=== PATIENT | female | born 1950 | race Hispanic/Latino ===

== ENCOUNTER 2017-07-27 09:13 | Inpatient (IN) | payer MEDICARE ==
[2017-07-27 09:18] VITALS: BMI 25.5
[2017-07-27] MEDS ORDERED: Morphine 2 mg/ml ISec IM STA (09:28)
--- NOTE | 2017-07-27 09:32 | ED PDOC ---
Arrival/HPI - General Time Seen by Provider: 07/27/17 09:18 Historian: Patient - History of Present Illness Narrative History of Present Illness (Text): 07/27/17 09:32 67 y/o female, nkda, c/o rt. ankle pain x 2 days s/p inversion injury yesterday while slipping on the wet surface as she was taking out the garbage can. Pt. stated that she has no head/neck/back injury, no headache/neck or back pain, able to recall the whole event, no dizziness, stated that this is purely accidental mechanical fall due to the the slipper on the step while taking the garbage out, stated that she also twisted the lt. foot as well, no hematuria, no abdominal pain, no nausea/vomiting, no numbness or tingling, no other medical or psychological complaints. Past Medical History - Provider Review Nursing Documentation Reviewed: Yes - Musculoskeletal/Rheumatological Hx Falls: No - Psychiatric Hx Substance Use: No - Suicidal Assessment Feels Threatened In Home Enviroment: No Family/Social History - Physician Review Nursing Documentation Reviewed: Yes Family/Social History: Unknown Family HX Hx Alcohol Use: No Hx Substance Use: No Hx Substance Use Treatment: No Allergies/Home Meds Allergies/Adverse Reactions: Allergies No Known Allergies Allergy (Verified 07/27/17 09:27) Home Medications: Home Meds Medication Instructions Recorded Confirmed No Known Home Med 12/02/11 07/27/17 Review of Systems - Review of Systems Constitutional: absent: Fatigue, Fevers Eyes: absent: Vision Changes ENT: absent: Hearing Changes Respiratory: absent: SOB, Cough Cardiovascular: absent: Chest Pain Gastrointestinal: absent: Abdominal Pain, Diarrhea, Nausea, Vomiting Musculoskeletal: Arthralgias, Joint Swelling. absent: Back Pain, Neck Pain, Myalgias Skin: absent: Rash, Pruritis, Skin Lesions Neurological: absent: Headache, Dizziness Psychiatric: absent: Anxiety, Depression, Suicidal Ideation Physical Exam Vital Signs Reviewed: Yes Vital Signs Temp Pulse Resp BP Pulse Ox 07/27/17 11:22 89 18 158/86 H 99 07/27/17 09:25 98.2 F 98 H 18 165/98 H 99 Temperature: Afebrile Blood Pressure: Hypertensive Pulse: Regular Respiratory Rate: Normal Appearance: Positive for: Well-Appearing, Non-Toxic Pain Distress: Moderate Mental Status: Positive for: Alert and Oriented X 3 - Systems Exam Head: Present: Atraumatic, Normocephalic. No: Tenderness, Contusion, Swelling, Ecchymosis, Abrasion, Laceration, Other Pupils: Present: PERRL Extroacular Muscles: Present: EOMI Conjunctiva: Present: Normal Mouth: Present: Moist Mucous Membranes Nose (External): Present: Atraumatic. No: Abrasion, Contusion, Laceration, Lesions, Other Nose (Internal): Present: Normal Inspection, No Active Bleeding, Moist. No: Rhinorrhea, Septal Deviation, Septal Hematoma, Epistaxis Neck: Present: Normal Range of Motion, Trachea Midline. No: MIDLINE TENDERNESS , Paraspinal Tenderness, Lymphadenopathy Respiratory/Chest: Present: Clear to Auscultation, Good Air Exchange, Other (no ecchymosis/bruising). No: Respiratory Distress, Accessory Muscle Use, Wheezes, Decreased Breath Sounds, Rales, Retracting, Rhonchi, Tachypneic, Tender to Palpation Cardiovascular: Present: Regular Rate and Rhythm, Normal S1, S2, Other (no pedal edema). No: Murmurs Abdomen: Present: Normal Bowel Sounds, Other (no visible ecchymosis and no signs of trauma). No: Tenderness, Distention, Peritoneal Signs, Rebound, Guarding Back: Present: Normal Inspection, Other (no ecchymosis or signs of trauma). No : CVA Tenderness, Midline Tenderness, Paraspinal Tenderness, Pain with Leg Raise Upper Extremity: Present: Normal Inspection, Normal ROM, Neurovascularly Intact , Capillary Refill < 2s. No: Cyanosis, Edema, Tenderness, Swelling, Deformity Lower Extremity: Present: Normal Inspection, NORMAL PULSES, Normal ROM, Neurovascularly Intact, Capillary Refill < 2 s, Other (Rt. ankle/foot: +ttp on the medial mallelous, swelling to the medial and lateral malleolus, skin intact , no foot tenderness, limited ROM ankle due to the pain but able to have passive /active movement, no foot tenderness, +DPPT pulses, capillary refill< 2 seconds , neurovascular intact. Lt. foot +ttp on the lateral 5th metatarsal region with skin intact, no deformity, FROM without limitation, sensation intact, motor 5/5 , +DPPT pulses, no ankle tenderness. Bilateral lower extremities with negative manoj and mendez signs. ). No: Edema, Deformity Neurological: Present: GCS=15, CN II-XII Intact, Speech Normal Skin: Present: Warm, Dry, Normal Color. No: Rashes Psychiatric: Present: Alert, Oriented x 3, Normal Insight, Normal Concentration Medical Decision Making ED Course and Treatment: 07/27/17 09:38 -Code ortho activated earlier by me -morphine and rt. ankle/lt. ankle xray ordered -observe and reassess 07/27/17 10:18 -xray reviewed by me with bimalleolus(possible trimalleolus) fractures with tibial dislocation, will need reduction and splinting, will need admission for surgical procedure. -Labs/pt/ptt -cxr/ekg -IVF and dilaudid ordered for reduction procedure. -Pt. will need admission for this surgical case. 07/27/17 11:50 -Rt. ankle reduced by me with axial traction, post reduction film ordered. 07/27/17 12:18 -EKG: NSR @ 88 BPM, no ST elevation or depression, no T wave inversion. -Rt. ankle xray show rt. ankle fractures with tibial dislocation, reduced by me with improved anatomatical position but still needs admission for surgical procedure. -Rt. ankle reduction film with dislocation resolved and improved anatomically post reduction. -Lt. foot xray show 5th metatarsal fracture. -Chest xray show no active disease -Labs are non-significant -Dr. Garland pageshaji out, spoke to him, discussed about the case and dr. whitehead, agreed on the admission to his service and routine consult for Dr. Whitehead. -Dr. Gosia tyler (pt. and family request), discussed about the case and xray, agreed to consult the case, satisfied with the reduction, will come to see the patient this afternoon -Discussed with DR. Love, agreed on the labs/treatment and admission, he will put in the admission order. 07/27/17 12:32 -Lt. foot placed on the posterior splint by me with neurovascular intact. 07/27/17 14:57 -Pt. still feeling nauseous, reglan/pepcid. - Lab Interpretations Lab Results: 07/27/17 11:00 07/27/17 11:00 Lab Results 07/27/17 11:00: WBC 7.3, RBC 4.92, Hgb 15.8, Hct 46.3, MCV 94.1, MCH 32.1, MCHC 34.1, RDW 12.9, Plt Count 146, MPV 10.9, Gran % 70.3 H, Lymph % (Auto) 21.4 L, [place] % (Auto) 7.5 H, Eos % (Auto) 0.7 L, Baso % (Auto) 0.1, Gran # 5.16, Lymph # 1.6, [place] # 0.6, Eos # 0.1, Baso # 0.01 07/27/17 11:00: Sodium 139, Potassium 5.0, Chloride 104, Carbon Dioxide 23, Anion Gap 17, BUN 15, Creatinine 0.7, Est GFR ( Amer) > 60, Est GFR (Non- Af Amer) > 60, Random Glucose 108, Calcium 9.7, Magnesium 2.1, Total Bilirubin 0.6, AST 36, ALT 50, Alkaline Phosphatase 92, Total Protein 8.1, Albumin 4.4, Globulin 3.7, Albumin/Globulin Ratio 1.2 07/27/17 11:00: PT 11.4, INR 0.99, APTT 27.4 - RAD Interpretation Radiology Orders: 07/27/17 09:28 ANKLE RIGHT 3 VIEWS ROUTINE [RAD] Stat 07/27/17 10:14 CHEST PORTABLE [RAD] Stat FOOT LEFT 3 VIEWS ROUTINE [RAD] Stat 07/27/17 11:54 ANKLE RIGHT 3 VIEWS ROUTINE [RAD] Stat Rt. ankle: PROCEDURE: Right Ankle Radiographs. HISTORY: rt. ankle inversion injury x 2 days COMPARISON: None FINDINGS: BONES: Displaced fractures are seen of the lateral and medial malleolus. There is also dislocation of the ankle joint with the tibia displaced anterior to the talar dome JOINTS: As above SOFT TISSUES: Normal. OTHER FINDINGS: None. IMPRESSION: Displaced fractures are seen of the lateral and medial malleolus. There is also dislocation of the ankle joint with the tibia displaced anterior to the talar dome Lt. foot xray: PROCEDURE: Left Foot Radiographs. HISTORY: lt. lateral foot 5th metatarsal tenderness COMPARISON: None. FINDINGS: BONES: There is a transverse fracture through the base of the 5th metatarsal JOINTS: Normal. SOFT TISSUES: Normal. OTHER FINDINGS: None. IMPRESSION: Transverse fracture through the base of the 5th metatarsal Rt. ankle xray: PROCEDURE: Right Ankle Radiographs. HISTORY: rt. ankle post reduction COMPARISON: 07/27/2017 FINDINGS: BONES: There is improvement in the alignment of the bimalleolar fracture. The ankle joint is restored JOINTS: As above SOFT TISSUES: Normal. OTHER FINDINGS: None. IMPRESSION: Improvement in alignment of bimalleolar fracture. Successful reduction of ankle joint Chest xray: HISTORY: medical clearance COMPARISON: No prior. FINDINGS: LUNGS: No active pulmonary disease. PLEURA: No significant pleural effusion identified, no pneumothorax apparent. CARDIOVASCULAR: Normal. OSSEOUS STRUCTURES: No significant abnormalities. VISUALIZED UPPER ABDOMEN: Normal. OTHER FINDINGS: None. IMPRESSION: No active disease. Doll Eye Setter: Radiologist - EKG Interpretation EKG Interpretation (Text): 07/27/17 11:53 -EKG: NSR @ 88 BPM, no ST elevation or depression, no T wave inversion. Interpreted by ED Physician: Yes Type: 12 lead EKG - Medication Orders Current Medication Orders: Sodium Chloride (Sodium Chloride 0.9%) 1,000 mls @ 100 mls/hr IV .Q10H [facility] ELENA Last Admin: 07/27/17 11:47 Dose: 100 mls/hr eMAR Start Stop Document 07/27/17 11:47 GETACHEW (Rec: 07/27/17 11:47 GETACHEW [id number]) Intravenous Solution Start Date 07/27/17 Start Time 11:47 Discontinued Medications Famotidine (Pepcid) 20 mg IVP STAT STA Stop: 07/27/17 14:57 Last Admin: 07/27/17 15:28 Dose: 20 mg IVP Administration Document 07/27/17 15:28 RG (Rec: 07/27/17 15:28 RG [id number]) Charges for Administration # of IVP Administrations 1 Hydromorphone HCl (Dilaudid) 1 mg IVP STAT STA Stop: 07/27/17 10:15 Last Admin: 07/27/17 11:16 Dose: 1 mg MAR Pain Assessment Document 07/27/17 11:16 RG (Rec: 07/27/17 11:16 RG [id number]) Pain Reassessment Is this a pain reassessment? Yes Sleep Is patient sleeping during reassessment? No Presence of Pain Presence of Pain Yes Pain Scale Used Pain Scale Used Numeric Location Left, Right or Bilateral Right Upper or Lower Lower Pain Location Body Site Foot Description Description Intermittent IVP Administration Document 07/27/17 11:16 RG (Rec: 07/27/17 11:16 RG [id number]) Charges for Administration # of IVP Administrations 1 Metoclopramide HCl (Reglan) 10 mg IVP STAT STA Stop: 07/27/17 14:57 Last Admin: 07/27/17 15:28 Dose: 10 mg IVP Administration Document 07/27/17 15:28 RG (Rec: 07/27/17 15:28 RG [id number]) Charges for Administration # of IVP Administrations 1 Morphine Sulfate (Morphine) 2 mg IM STAT STA Stop: 07/27/17 09:29 Last Admin: 07/27/17 09:38 Dose: 2 mg MAR Pain Assessment Document 07/27/17 09:38 RG (Rec: 07/27/17 09:42 RG [id number]) Pain Reassessment Is this a pain reassessment? Yes Sleep Is patient sleeping during reassessment? No Presence of Pain Presence of Pain Yes Pain Scale Used Pain Scale Used Numeric Location Left, Right or Bilateral Right Upper or Lower Lower Pain Location Body Site Foot Description Description Intermittent Intensity of Pain at present 4 Aggravating Factors Changing Position Exercise/Activity Standing Walking Stair Climbing Alleviating Factors/Management Inactivity Techniques Alleviating Factors Inactivity IM Administration Charges Document 07/27/17 09:38 RG (Rec: 07/27/17 09:42 RG [id number]) Injection Site MAR Injection Site Left Deltoid Charges for Administration # of IM Administrations 1 Ondansetron HCl (Zofran Inj) 4 mg IVP STAT STA Stop: 07/27/17 10:17 Last Admin: 07/27/17 11:15 Dose: 4 mg IVP Administration Document 07/27/17 11:15 RG (Rec: 07/27/17 11:15 RG [id number]) Charges for Administration # of IVP Administrations 1 Ondansetron HCl (Zofran Inj) 4 mg IVP STAT STA Stop: 07/27/17 13:26 Last Admin: 07/27/17 13:20 Dose: 4 mg IVP Administration Document 07/27/17 13:20 GETACHEW (Rec: 07/27/17 14:07 GETACHEW [id number]) Charges for Administration # of IVP Administrations 1 Procedures - Joint Reduction Conscious Sedation: No Reduction Attempts: 1 (performed 07/27/2017 11:45am, total procedure time 15 minutes. ) Pre-Procedure NV Exam: Yes Post Joint Reduction Film: joint reduced Progress: post reduction film show there is anatomical improvement, posterior and sugartongue splint applied to the rt. lower extremity, neurovascular intact, RLE sensation intact, motor 5/5, capillary refill< 2 seconds, neurovascular intact, pt. feels much better. - PA / DEPLOYMENT SPECIALIST / Resident Statement MD/DO has reviewed & agrees with the documentation as recorded. Disposition/Present on Arrival - Present on Arrival Any Indicators Present on Arrival: No History of DVT/PE: No History of Uncontrolled Diabetes: No Urinary Catheter: No History of Decub. Ulcer: No - Disposition Have Diagnosis and Disposition been Completed?: Yes Diagnosis: Ankle fracture, Ankle dislocation, Foot fracture Disposition: HOSPITALIZED Disposition Time: 10:19 Patient Plan: Admission Patient Problems: Current Active Problems Problem Status Onset Ankle fracture Acute Ankle dislocation Acute Foot fracture Acute Condition: STABLE
[2017-07-27] MEDS ORDERED: HYDROmorphone 1 mg/ml ISec IVP STA (10:14)
[2017-07-27] MEDS ORDERED: HYDROmorphone 0.5 mg/0.5 ml ISec IVP STA (10:19)
--- NOTE | 2017-07-27 10:25 | RAD ---
PROCEDURE: Right Ankle Radiographs. HISTORY: rt. ankle inversion injury x 2 days COMPARISON: None FINDINGS: BONES: Displaced fractures are seen of the lateral and medial malleolus. There is also dislocation of the ankle joint with the tibia displaced anterior to the talar dome JOINTS: As above SOFT TISSUES: Normal. OTHER FINDINGS: None. IMPRESSION: Displaced fractures are seen of the lateral and medial malleolus. There is also dislocation of the ankle joint with the tibia displaced anterior to the talar dome
[2017-07-27 11:11] LABS: BASO # 0.01 K/mm3 (0.0-2.0); BASO % 0.1 % (0.0-3.0); EOS # 0.1 (0.0-0.7); EOS % 0.7 % (1.5-5.0); GRAN # 5.16 (1.4-6.5); GRAN % 70.3 % (50.0-68.0); HEMOGLOBIN 15.8 g/dL (12.0-16.0); LYMPH # 1.6 (1.2-3.4); LYMPH % 21.4 % (22.0-35.0); MEAN CELL VOLUME 94.1 fl (80.0-105.0); MEAN CORPUSCULAR HEMOGLOBIN 32.1 pg (25.0-35.0); MEAN CORPUSCULAR HGB CONC 34.1 g/dl (31.0-37.0); MEAN PLATELET VOLUME 10.9 fl (7.0-11.0); MONO # 0.6 (0.1-0.6); MONO % 7.5 % (1.0-6.0); RBC 4.92 10^6/uL (3.5-6.1); RED CELL DISTRIBUTION WIDTH 12.9 % (11.5-14.5); WHITE BLOOD COUNT 7.3 10^3/ul (4.5-11.0)
[2017-07-27 11:23] LABS: ALB/GLOB RATIO 1.2 (1.1-1.8); ALBUMIN 4.4 g/dL (3.0-4.8); ALT/SGPT 50 U/L (7-56); AST/SGOT 36 U/L (14-36); BLOOD UREA NITROGEN 15 mg/dL (7-21); CALCIUM 9.7 mg/dL (8.4-10.5); GFR AFRICAN-AMERICAN > 60; GFR NON-AFRICAN AMERICAN > 60; MAGNESIUM 2.1 mg/dL (1.7-2.2)
[2017-07-27 11:24] LABS: INR 0.99 (0.93-1.08); PARTIAL THROMBOPLASTIN TIME 27.4 Seconds (25.1-36.5); PROTHROMBIN TIME 11.4 SECONDS (9.4-12.5)
[2017-07-27] MEDS: Sodium Chloride 0.9% 1,000 ML IV SCH ×2 (11:47→22:17)
--- NOTE | 2017-07-27 12:13 | RAD ---
HISTORY: medical clearance COMPARISON: No prior. FINDINGS: LUNGS: No active pulmonary disease. PLEURA: No significant pleural effusion identified, no pneumothorax apparent. CARDIOVASCULAR: Normal. OSSEOUS STRUCTURES: No significant abnormalities. VISUALIZED UPPER ABDOMEN: Normal. OTHER FINDINGS: None. IMPRESSION: No active disease.
--- NOTE | 2017-07-27 12:19 | RAD ---
PROCEDURE: Right Ankle Radiographs. HISTORY: rt. ankle post reduction COMPARISON: 07/27/2017 FINDINGS: BONES: There is improvement in the alignment of the bimalleolar fracture. The ankle joint is restored JOINTS: As above SOFT TISSUES: Normal. OTHER FINDINGS: None. IMPRESSION: Improvement in alignment of bimalleolar fracture. Successful reduction of ankle joint
--- NOTE | 2017-07-27 13:34 | RAD ---
PROCEDURE: Left Foot Radiographs. HISTORY: lt. lateral foot 5th metatarsal tenderness COMPARISON: None. FINDINGS: BONES: There is a transverse fracture through the base of the 5th metatarsal JOINTS: Normal. SOFT TISSUES: Normal. OTHER FINDINGS: None. IMPRESSION: Transverse fracture through the base of the 5th metatarsal
[2017-07-27 15:57] LABS: PH,URINE 6.5 (4.7-8.0); URINE BILIRUBIN NEGATIVE (NEGATIVE); URINE BLOOD NEGATIVE (NEGATIVE); URINE GLUCOSE (UA) NEGATIVE (NEGATIVE); URINE LEUKOCYTE ESTERASE TRACE Leu/uL (NEGATIVE); URINE NITRATE POSITIVE (NEGATIVE); URINE PROTEIN TRACE mg/dL (<30 mg/dL)
[2017-07-27 15:58] LABS: URINE APPEARANCE TURBID (CLEAR); URINE COLOR YELLOW (YELLOW)
[2017-07-27] MEDS ORDERED: cefTRIAXone 1 gm 1 GM/100 ML BAG IVPB STA (16:10)
[2017-07-27 16:12] LABS: URINE BACTERIA MANY (NEG); URINE EPITHELIAL CELLS 0 - 2 /hpf (0-5); URINE RBC NEGATIVE /hpf (0-2)
[2017-07-27] MEDS ORDERED: Pneumococcal 23-Valent Vaccine IM ONE (17:11)
[2017-07-27] MEDS ORDERED: Influenza Vaccine 60 mcg/0.5 mL SYR (4YR UP) IM ONE (17:11)
[2017-07-27] MEDS: Enoxaparin 30 mg Syringe SC SCH (17:52)
--- NOTE | 2017-07-27 20:02 | CARD ---
APPROVED REPORT EKG Measurement Heart [id number] <Conclusion> Normal sinus rhythm with sinus arrhythmia Nonspecific T wave abnormality Abnormal ECG
--- NOTE | 2017-07-27 22:34 | CP.PCM.PN ---
Subjective - Date & Time of Evaluation Date of Evaluation: 07/27/17 Time of Evaluation: 22:33 - Subjective Subjective: Patient complained of pain in right ankle. Seen at bedside. Has no other complaints. Medical record was reviewed. This 67 year old white woman was admitted with Rt ankle pain of 2 days duration , right ankle fracture/dislocation, left 5th metatarsal base fx. Has no significant past medical history. Objective - Vital Signs/Intake and Output Vital Signs (last 24 hours): Temp Pulse Resp BP Pulse Ox 98.7 F 65 20 153/84 H 98 07/27/17 17:08 07/27/17 17:08 07/27/17 17:08 07/27/17 17:08 07/27/17 17:08 Intake and Output: 07/27/17 07/28/17 18:59 06:59 Intake Total 540 Balance 540 - Medications Medications: Current Medications Enoxaparin Sodium (Lovenox) 30 mg SC DAILY MARIA ELENA PRN Reason: Protocol Last Admin: 07/27/17 17:52 Dose: 30 mg Sodium Chloride (Sodium Chloride 0.9%) 1,000 mls @ 100 mls/hr IV .Q10H [facility] Last Admin: 07/27/17 22:17 Dose: 100 mls/hr Ondansetron HCl (Zofran Inj) 4 mg IVP Q6H PRN PRN Reason: Nausea/Vomiting Pantoprazole Sodium (Protonix Inj) 40 mg IVP DAILY [facility] Last Admin: 07/27/17 17:53 Dose: 40 mg - Labs Labs: PT 11.4 SECONDS (9.4-12.5) 07/27/17 11:00 INR 0.99 (0.93-1.08) 07/27/17 11:00 APTT 27.4 Seconds (25.1-36.5) 07/27/17 11:00 Last Vital Signs Temp 98.7 F 07/27/17 17:08 Pulse 65 07/27/17 17:08 Resp 20 07/27/17 17:08 BP 153/84 H 07/27/17 17:08 Pulse Ox 98 07/27/17 17:08 Most Recent Lab Values WBC 7.3 10^3/ul (4.5-11.0) 07/27/17 11:00 RBC 4.92 10^6/uL (3.5-6.1) 07/27/17 11:00 Hgb 15.8 g/dL (12.0-16.0) 07/27/17 11:00 Hct 46.3 % (36.0-48.0) 07/27/17 11:00 MCV 94.1 fl (80.0-105.0) 07/27/17 11:00 MCH 32.1 pg (25.0-35.0) 07/27/17 11:00 MCHC 34.1 g/dl (31.0-37.0) 07/27/17 11:00 RDW 12.9 % (11.5-14.5) 07/27/17 11:00 Plt Count 146 10^3/uL (120.0-450.0) 07/27/17 11:00 MPV 10.9 fl (7.0-11.0) 07/27/17 11:00 Gran % 70.3 % (50.0-68.0) H 07/27/17 11:00 Lymph % (Auto) 21.4 % (22.0-35.0) L 07/27/17 11:00 [place] % (Auto) 7.5 % (1.0-6.0) H 07/27/17 11:00 Eos % (Auto) 0.7 % (1.5-5.0) L 07/27/17 11:00 Baso % (Auto) 0.1 % (0.0-3.0) 07/27/17 11:00 Gran # 5.16 (1.4-6.5) 07/27/17 11:00 Lymph # 1.6 (1.2-3.4) 07/27/17 11:00 [place] # 0.6 (0.1-0.6) 07/27/17 11:00 Eos # 0.1 (0.0-0.7) 07/27/17 11:00 Baso # 0.01 K/mm3 (0.0-2.0) 07/27/17 11:00 PT 11.4 SECONDS (9.4-12.5) 07/27/17 11:00 INR 0.99 (0.93-1.08) 07/27/17 11:00 APTT 27.4 Seconds (25.1-36.5) 07/27/17 11:00 Sodium 139 mmol/L (132-148) 07/27/17 11:00 Potassium 5.0 mmol/L (3.6-5.0) 07/27/17 11:00 Chloride 104 mmol/L (98-107) 07/27/17 11:00 Carbon Dioxide 23 mmol/L (21-33) 07/27/17 11:00 Anion Gap 17 (10-20) 07/27/17 11:00 BUN 15 mg/dL (7-21) 07/27/17 11:00 Creatinine 0.7 mg/dl (0.7-1.2) 07/27/17 11:00 Est GFR ( Amer) > 60 07/27/17 11:00 Est GFR (Non-Af Amer) > 60 07/27/17 11:00 Random Glucose 108 mg/dL (70-110) 07/27/17 11:00 Calcium 9.7 mg/dL (8.4-10.5) 07/27/17 11:00 Magnesium 2.1 mg/dL (1.7-2.2) 07/27/17 11:00 Total Bilirubin 0.6 mg/dL (0.2-1.3) 07/27/17 11:00 AST 36 U/L (14-36) 07/27/17 11:00 ALT 50 U/L (7-56) 07/27/17 11:00 Alkaline Phosphatase 92 U/L (38-126) 07/27/17 11:00 Total Protein 8.1 g/dL (5.8-8.3) 07/27/17 11:00 Albumin 4.4 g/dL (3.0-4.8) 07/27/17 11:00 Globulin 3.7 gm/dL 07/27/17 11:00 Albumin/Globulin Ratio 1.2 (1.1-1.8) 07/27/17 11:00 Urine Color Yellow (YELLOW) 07/27/17 15:46 Urine Appearance Turbid (CLEAR) 07/27/17 15:46 Urine pH 6.5 (4.7-8.0) 07/27/17 15:46 Ur Specific [place] 1.020 (1.005-1.035) 07/27/17 15:46 Urine Protein Trace mg/dL (<30 mg/dL) H 07/27/17 15:46 Urine Glucose (UA) Negative mg/dL (NEGATIVE) 07/27/17 15:46 Urine Ketones 15 mg/dL (NEGATIVE) H 07/27/17 15:46 Urine Blood Negative (NEGATIVE) 07/27/17 15:46 Urine Nitrate Positive (NEGATIVE) H 07/27/17 15:46 Urine Bilirubin Negative (NEGATIVE) 07/27/17 15:46 Urine Urobilinogen 2.0 E.U./dL (<1 E.U./dL) H 07/27/17 15:46 Ur Leukocyte Esterase Trace Vinicius/uL (NEGATIVE) H 07/27/17 15:46 Urine RBC Negative /hpf (0-2) 07/27/17 15:46 Urine WBC 1 - 3 /hpf (0-6) 07/27/17 15:46 Ur Epithelial Cells 0 - 2 /hpf (0-5) 07/27/17 15:46 Urine Bacteria Many (NEG) 07/27/17 15:46 Blood Type A POSITIVE 07/27/17 14:58 Blood Type Confirm A POSITIVE 07/27/17 16:51 Antibody Screen Negative 07/27/17 14:58 BBK History Checked No verified bt 07/27/17 14:58 - Constitutional Appears: Well, No Acute Distress - Head Exam Head Exam: ATRAUMATIC, NORMAL INSPECTION, NORMOCEPHALIC - Eye Exam Eye Exam: Normal appearance - ENT Exam ENT Exam: Normal External Ear Exam - Neck Exam Neck Exam: Normal Inspection - Respiratory Exam Respiratory Exam: NORMAL BREATHING PATTERN - Cardiovascular Exam Cardiovascular Exam: absent: JVD - GI/Abdominal Exam GI & Abdominal Exam: absent: Distended - Rectal Exam Rectal Exam: Deferred - Exam Additional comments: Deferred. - Extremities Exam Additional comments: Right ankle in splint, can wiggle toes. - Back Exam Back Exam: NORMAL INSPECTION - Neurological Exam Neurological Exam: Alert, Awake, Oriented x3 - Psychiatric Exam Psychiatric exam: Normal Affect, Normal Mood - Skin Skin Exam: Normal Color Assessment and Plan - Assessment and Plan (Free Text) Assessment: Right ankle pain. Right ankle fracture. Left 5th metatarsal base fracture. UTI. Plan: Tylenol 640 mg PO x 1. Continue present management as per PMD and Orthopedist.
[2017-07-28] MEDS: Pantoprazole 40 mg EC Tab PO SCH (06:47)
[2017-07-28] MEDS: Enoxaparin 30 mg Syringe SC SCH (10:10)
--- NOTE | 2017-07-28 19:49 | HP ---
HISTORY OF PRESENT ILLNESS: A 67-year-old white female admitted to hospital after bilateral ankle fractures. The patient was seen by Dr. Sprague in the ER, severe swelling of both ankles. The patient was deferred surgery at this point. The patient has no other past medical history. She does have history of ankle fracture in the past. She has no history of osteoporosis or family history of osteoporosis. She is on no PPIs. She is on no other medication. She has no other past medical history except for the ankle fractures. Her chemistries are within normal limits. Her H and H within normal limits. The patient does complain only had moderate discomfort. She is at bedrest. PHYSICAL EXAMINATION: GENERAL: She was a well-developed, slightly obese white female with mild respiratory distress. VITAL SIGNS: Her temperature is 98, blood pressure 136/81. HEENT: Essentially within normal limits. HEART: Reveals sinus rhythm. No S3 or murmurs. ABDOMEN: Benign and obese. No hepatosplenomegaly. EXTREMITIES: No cyanosis, clubbing, or edema. Both ankles are wrapped and swollen. The patient moves her toes without swelling or discomfort. Normal sensation. Pulses are intact bilaterally. IMPRESSION: Bilateral ankle fractures in a 67-year-old white female with history of ankle fracture in the past. Jose Garland MD
--- NOTE | 2017-07-28 19:57 | CT ---
EXAM: CT Right Lower Extremity Without Intravenous Contrast, Ankle EXAM DATE/TIME: 07/27/2017 5:07 PM CLINICAL HISTORY: 67 years old, female; Injury or trauma; Fall; Initial encounter; Fracture, traumatic and sprain or strain; Ankle; Right; Other: FX rt ankle; Not specified TECHNIQUE: Axial computed tomography images of the right ankle without intravenous contrast. All CT scans at this facility use one or more dose reduction techniques, viz.: automated exposure control; ma/kV adjustment per patient size (including targeted exams where dose is matched to indication; i.e. head); or iterative reconstruction technique. Coronal and sagittal reformatted images were created and reviewed. COMPARISON: DX - ANKLE RIGHT 3 VIEWS ROUTINE 2017-07-27 11:59 FINDINGS: Bones/joints: There is a comminuted fracture of the distal fibula. There is posterolateral displacement of the major distal fracture fragment. There is overriding of the fracture fragments. There is a comminuted fracture of the medial malleolus. There is mild distraction and lateral displacement of the major fracture fragment. There is a posterior malleolar fracture. There is widening of the ankle mortise. No talar fracture is identified. No calcaneal fracture is identified. There is minimal irregularity of the dorsal surface of the tarsal navicular suggesting possible evulsion fracture. Visualized mid foot and forefoot is otherwise unremarkable. Soft tissues: There is diffuse soft tissue swelling at the right ankle. IMPRESSION: Trimalleolar ankle fracture with widening of the ankle mortise; possible avulsion fracture involving the dorsal surface of the tarsal navicular
--- NOTE | 2017-07-29 04:18 | CP.PCM.PN ---
Subjective - Date & Time of Evaluation Date of Evaluation: 07/29/17 Time of Evaluation: 03:49 - Subjective Subjective: S:Requested pain medication for pain in right ankle. No other complaints. Medical record was reviewed. O: Last Vital Signs 3 Temp 98.9 F 07/28/17 16:00 Pulse 80 07/28/17 16:00 Resp 20 07/28/17 16:00 BP 164/98 H 07/28/17 16:00 Pulse Ox 98 07/28/17 16:00 Stable. Not in distress. LUNGS:Normal breathing pattern. Right leg in splint. A:Right ankle fracture. Right ankle pain. P:Motrin 800 mg PO x 1. Objective - Vital Signs/Intake and Output Vital Signs (last 24 hours): Temp Pulse Resp BP Pulse Ox 98.9 F 80 20 164/98 H 98 07/28/17 16:00 07/28/17 16:00 07/28/17 16:00 07/28/17 16:00 07/28/17 16:00 Intake and Output: 07/28/17 07/29/17 18:59 06:59 Intake Total 580 420 Balance 580 420 - Medications Medications: Current Medications Acetaminophen (Tylenol 325mg Tab) 650 mg PO Q6H PRN PRN Reason: Pain, moderate (4-7) Last Admin: 07/28/17 23:32 Dose: 650 mg Enoxaparin Sodium (Lovenox) 30 mg SC DAILY [facility] PRN Reason: Protocol Last Admin: 07/28/17 10:10 Dose: 30 mg Sodium Chloride (Sodium Chloride 0.9%) 1,000 mls @ 100 mls/hr IV .Q10H [facility] Last Admin: 07/27/17 22:17 Dose: 100 mls/hr Ondansetron HCl (Zofran Inj) 4 mg IVP Q6H PRN PRN Reason: Nausea/Vomiting Pantoprazole Sodium (Protonix Ec Tab) 40 mg PO 0600 [facility] Last Admin: 07/28/17 06:47 Dose: 40 mg - Labs Labs: PT 11.4 SECONDS (9.4-12.5) 07/27/17 11:00 INR 0.99 (0.93-1.08) 07/27/17 11:00 APTT 27.4 Seconds (25.1-36.5) 07/27/17 11:00
[2017-07-29] MEDS: Pantoprazole 40 mg EC Tab PO SCH (05:57)
[2017-07-29] MEDS ORDERED: Oxycodone/Acetaminophen 5/325 mg Tab PO PRN (09:00)
[2017-07-29] MEDS: Enoxaparin 30 mg Syringe SC SCH (10:10)
--- NOTE | 2017-07-29 13:19 | PN ---
DATE: SUBJECTIVE: A 67-year-old white female admitted to the hospital with bilateral fractures of the ankles, particularly the right ankle, and the left fifth metatarsal. The patient has had some swelling and some pain overnight. Vital signs are stable. She was slightly hypertensive. She is on antihypertensive medications. PLAN: To continue pain medication, reduce swelling. Surgery on Sunday. Continue to monitor. The patient is being monitored for DVT. She is on prophylaxis. She also is getting blood pressure medication and pain medication as needed. Case discussed with Dr. Sprague. There is still some swelling, but he feels like surgery should proceed as ordered on Sunday. Physical examination is unchanged. Jose Garland MD
--- NOTE | 2017-07-29 14:09 | PN ---
DATE: 07/29/2017 SUBJECTIVE: A 67-year-old female in 556, bed 1. The patient is being followed for a second metatarsal fracture left foot and a highly comminuted displaced right ankle fracture too swollen to operate. We changed the dressing on both lower extremity injuries. The left leg will be treated now in a small compression dressing with a fracture boot for the fifth metatarsal base fracture that is minimally displaced and the right cast was opened and examined the skin. There are no signs of traumatic blood blisters. She does have swelling on the medial and lateral side of the right ankle. She is planned for surgery on 08/04/2017Sunday to further evaluate the condition of the leg to see if we can do open reduction and internal fixation versus an external fixator transarticular if we need to continue elevating before surgery is done and until she has a wrinkle sign that is where she has decreased swelling and the skin margin shows no compression from that swelling. Because if we operate too soon, there is a chance that the skin may not survive, so we would like to make sure she has a wrinkle sign before surgery, so we could have confidence that the wound will heal from the dissection of putting the bones back together and the other thing we can do if there is too much swelling when I observe her Sunday, I would try to put the foot and knee in a better position and then apply the transarticular external fixator. If most of the swelling is down, we can do a formal ORIF, so I will make that decision Sunday on 08/04/2017. After the procedure is done, she will go to subacute rehab to be followed until we could do next surgery if needed. Jae Sprague DO
[2017-07-30] MEDS: Pantoprazole 40 mg EC Tab PO SCH (05:45)
--- NOTE | 2017-07-30 08:05 | CON ---
DATE: 07/27/2017 ORTHOPEDIC CONSULTATION HISTORY OF PRESENT ILLNESS: Patient is a 67-year-old female, lives with her son, and slipped and fell early this morning while putting up the garbage cans. She turned around, she injured her right ankle sustaining a fracture dislocation, bimalleolar type. It was well reduced in the ER by the physician anesthesiology physician assistant, and she also injured her left foot having a fifth metatarsal base fracture, not a Henao type. So, with these two fractures of the legs and being overweight, it was difficult to get around and she cannot put weight on the right leg for sure and the left leg also has a cast, so she is going to be admitted for elevation, a DVT prophylaxis, and schedule her for surgery electively, awaiting the swelling to go down because report was that she had quite a bit of swelling in the ankle, having an unstable bimalleolar fracture, displaced lateral malleolar fracture and displaced medial malleolar fracture and subluxation of the talotibial joint. She will need a plate of the fibula and the plate of the medial malleolus, which requires extensive dissection and should be done when all the swelling goes down. So, I am going to change the cast this weekend in the hospital and see how it looks. Hopefully, we could do it earlier next week when we get this swelling down. In the meantime, we will put her on DVT prophylaxis and a therapy to help her get out of bed and do lower leg exercises and to eventually walk with the walker with partial weightbearing on the right and not on the left for six weeks. The right foot could take partial weightbearing with a walker when that pain subsides, that might occur in a week, and hopefully she can go to subacute rehab where I could follow her there as long as she could put weight on the right leg to fulfil physical therapy requirements. So, we will plan on doing a left ankle open reduction and internal fixation early next week, by then hopefully the swelling is down. Jae Sprague DO
[2017-07-30] MEDS: Enoxaparin 30 mg Syringe SC SCH (11:11)
--- NOTE | 2017-07-30 12:23 | PN ---
DATE: SUBJECTIVE: A 67-year-old white female admitted to the hospital with bilateral ankle fractures. PHYSICAL EXAMINATION: VITAL SIGNS: The patient is afebrile. Blood pressure 121/78, temperature 98.1. The patient was seen again by Dr. Sprague. Today, this following is decreased. She scheduled for surgery in the morning. Physical examination unchanged. The patient is without complaints. Jose Garland MD
[2017-07-31] MEDS: Pantoprazole 40 mg EC Tab PO SCH (06:10)
[2017-07-31] MEDS: Enoxaparin 30 mg Syringe SC SCH (11:08)
[2017-07-31] MEDS ORDERED: Midazolam 2 MG/2 ML VIAL ONE (12:09)
[2017-07-31] MEDS ORDERED: Succinylcholine 200 mg/10 ml Inj IV ONE (12:09)
[2017-07-31] MEDS ORDERED: Sevoflurane - Inhalation Anesthetic Liq (250 ml) ONE (12:10)
[2017-07-31] MEDS ORDERED: Rocuronium 10 mg/ml (5 ml) ONE (12:10)
[2017-07-31] MEDS ORDERED: Bupivacaine 0.5% Inj(30mL) ONE (12:37)
[2017-07-31] MEDS ORDERED: Vancomycin 1 g Inj ONE (12:56)
[2017-07-31] MEDS ORDERED: Phenylephrine 10 mg/ml Inj ONE (13:03)
[2017-07-31] MEDS ORDERED: ePHEDrine 50 mg/ml Inj ONE (13:03)
[2017-07-31] MEDS ORDERED: Neostigmine Methylsulfate 3mg/3ml Syringe IV ONE (15:00)
[2017-07-31] MEDS ORDERED: HYDROmorphone 0.5 mg/0.5 ml ISec IVP PRN (15:25)
[2017-07-31] MEDS ORDERED: HYDROmorphone 0.5 mg/0.5 ml ISec SC PRN (15:27)
[2017-07-31] MEDS ORDERED: Sodium Chloride 0.9% 1,000 ML IV SCH (15:30)
--- NOTE | 2017-07-31 17:08 | RAD ---
PROCEDURE: Fluoroscopy up to 1 hr. HISTORY: O.R.I.F. RIGHT ANKLE FX. COMPARISON: None TECHNIQUE: Standard protocol for this study/examination. FINDINGS: Total fluoroscopic time (continuous mode) utilized during the procedure: 43.9 seconds. Total exam DLP: 0.03610 mGy per meters squared. IMPRESSION: Less than 1 hr fluoroscopic time utilized during performance of the procedure.
--- NOTE | 2017-07-31 21:21 | PN ---
DATE: SUBJECTIVE: A 67-year-old white female admitted to the hospital with bilateral ankle fracture. The patient's stay was stable, her swelling has decreased. The patient will be going to surgery by Dr. Sprague today. PHYSICAL EXAMINATION VITAL SIGNS: Stable. LABORATORY DATA: Unremarkable. The patient is cleared for surgery and will be followed postop. Jose Garland MD
[2017-07-31] MEDS: ceFAZolin 1 gm in NS 1 GM/100 ML BAG IVPB SCH (22:19)
[2017-07-31] MEDS: Oxycodone/Acetaminophen 5/325 mg Tab PO PRN (22:26)
--- NOTE | 2017-08-01 02:11 | OP ---
PROCEDURE DATE: 07/31/2017 The patient is a 67-year-old female. PREOPERATIVE DIAGNOSIS: Fracture dislocation, right ankle. POSTOPERATIVE DIAGNOSIS: Fracture dislocation, right ankle. PROCEDURE: Open reduction and internal fixation of the lateral malleolus and casting of the medial malleolus and the dislocation was already taken care in the Emergency Room on the day of admission which was 07/27/2017. ASSEMBLER CATERPILLAR SPIDER SURGEON: Dr. marisel Mccann and myself. He is a surgeon and a Podiatry resident. TYPE OF ANESTHESIA: General endotracheal tube. DESCRIPTION OF PROCEDURE: The patient was taken to OR, right leg prepped and draped in sterile fashion with adequate anesthesia with the leg up. Tourniquet inflated. With the x-ray, we could see that she had a comminuted lateral malleolar fracture and medial malleolar fracture with more swelling medially than laterally, so we decided just to do the lateral malleolar fracture first, making that incision of the lateral malleolus 4 inches above and going through subcutaneous tissue, peroneal retracted posteriorly and taking the fracture down to clean it up of any debris and holding it together with a clamp and put a [employer] anatomic locking plate on with total of 11 screws. We did the proximal screws first to get the non-locking screws help bring the plate to the bone x2 and then we put 6 locking screws distally and 3 more screws proximally. The patient had a stable reduction, we tried to do a testing of the syndesmotic ligament, it appeared to be stable, did not open up the mortise, although it came back together almost anatomically, so we are going to not operate on that today because she saw a lot of swelling medially anyway and with the cast on 6 weeks, she should heal enough because it is a long oblique fracture pattern, so with this, we irrigated out the joint, closed the layers down with deep 2-0 Vicryl for the subcutaneous tissue and fascia, skin with 2-0 nylon interrupted and the combination with marquise. The patient was placed in a sterile dressing and posterior splint and tourniquet was take down prior to wound closure. The patient was sent to recovery room in good condition. Jae Sprague DO [facility] # [id number] MTDD
[2017-08-01] MEDS: Oxycodone/Acetaminophen 5/325 mg Tab PO PRN ×2 (04:37→13:10)
[2017-08-01] MEDS: ceFAZolin 1 gm in NS 1 GM/100 ML BAG IVPB SCH ×2 (06:07→13:10)
[2017-08-01 07:13] LABS: MEAN CELL VOLUME 93.7 fl (80.0-105.0); MEAN CORPUSCULAR HEMOGLOBIN 31.4 pg (25.0-35.0); MEAN CORPUSCULAR HGB CONC 33.5 g/dl (31.0-37.0); MEAN PLATELET VOLUME 9.5 fl (7.0-11.0); RBC 3.79 10^6/uL (3.5-6.1); RED CELL DISTRIBUTION WIDTH 12.6 % (11.5-14.5); WHITE BLOOD COUNT 8.3 10^3/ul (4.5-11.0)
[2017-08-01 07:22] LABS: HEMOGLOBIN 11.9 g/dL (12.0-16.0)
[2017-08-01 07:47] LABS: ALB/GLOB RATIO 1.1 (1.1-1.8); ALBUMIN 3.5 g/dL (3.0-4.8); ALT/SGPT 33 U/L (7-56); AST/SGOT 32 U/L (14-36); BLOOD UREA NITROGEN 16 mg/dL (7-21); CALCIUM 8.6 mg/dL (8.4-10.5); GFR AFRICAN-AMERICAN > 60; GFR NON-AFRICAN AMERICAN > 60
[2017-08-01 09:07] VITALS: BP 135/74; PULSE 76; RESP 20; TEMP 98.9; O2SAT 96
[2017-08-01] MEDS: Enoxaparin 30 mg Syringe SC SCH (10:22)
--- NOTE | 2017-08-01 14:01 | PN ---
DATE: 08/01/2017 SUBJECTIVE: Status post surgical repair by Dr. Sprague on her right ankle and also the left fifth metatarsal. The patient is doing well. Vital signs are stable postop. We will be looking for a rehab bed. Vital signs are stable. Pulses are intact. Wounds are clean and dry. Jose Garland MD
--- NOTE | 2017-08-01 19:00 | PN ---
DATE: 08/01/2017 POSTOPERATIVE NOTE SUBJECTIVE: The patient had surgery on 07/31/2017 for fracture dislocation of right ankle where she underwent open reduction and internal fixation of the lateral malleolus with reduction of the talus that was posterior, was done in the emergency room on the day of injury on 07/27/2017 by the ER staff, and I elected not to fix the medial side of the ankle on the right side because it was in good position and that would require a good benefit, so I should keep her in a cast and nonweightbearing for six to eight weeks, the medial malleolar should do fine and the wound should heal uneventfully on the lateral side, but I will be following her when she goes to subacute rehab and take the suture out in two to three weeks. Only that time comes down, we will put her in a real short-leg cast, still with nonweightbearing for another four to six weeks. The left foot fracture which is a stable fifth metatarsal base fracture, we will treat it with soft cast or walking boot and we get one. FINAL DIAGNOSIS: Fracture and dislocation of right ankle, underwent surgery on 07/31/2017, and we will treat the left side without surgery and the medial side of the right ankle without surgery, but just do orthopedic cares and nonweightbearing on the right and partial weightbearing on the left. I will follow her in the subacute rehab facility to help with the same. Jae Sprague DO [facility]
== END 2017-08-01 17:25 | DRG 493 ==
LOC: ED 09:13 → ERH 12:18 → 5RNO 16:16 → OBSVTOIN 07-28 10:00
PROVIDERS: ADMIT Internal Medicine; ATTEND Internal Medicine
PROC: 0QSJXZZ Reposition Right Fibula, External Approach (ICD-10-PCS; 2017-07-27)
PROC: 0QSG04Z Reposition Right Tibia with Internal Fixation Device, Open Approach (ICD-10-PCS; principal; 2017-07-31 12:00)
DX: S82.841A Displaced bimalleolar fracture of right lower leg, initial encounter for closed fracture (principal); N39.0 Urinary tract infection, site not specified; S92.352A Displaced fracture of fifth metatarsal bone, left foot, initial encounter for closed fracture; E66.9 Obesity, unspecified; W01.0XXA Fall on same level from slipping, tripping and stumbling without subsequent striking against object, initial encounter; Z68.25 Body mass index [BMI] 25.0-25.9, adult; Y93.89 Activity, other specified; Y92.098 Other place in other non-institutional residence as the place of occurrence of the external cause